=== PATIENT | female | born 1980 | race Caucasian/White ===

== ENCOUNTER 2018-12-18 05:45 | Emergency (ER) | payer OTHER ==
[2018-12-18 06:14] LABS: Urine Blood TRACE (NEG); Urine Glucose 1+ (NEG); Urine Protein 3+ (NEG)
[2018-12-18 06:22] LABS: Absolute Lymphocytes (CBC) 1.7 K/uL (0.7-4.9); Eosinophils % 2.4 % (0-4.4); Hematocrit 41.1 % (36.0-45.0); Lymphocytes % 33.2 % (15.3-44.8); MPV 9.8 fL (7.6-11.3); Monocytes % 4.2 % (3.3-12.3)
[2018-12-18] MEDS ORDERED: ONDANSETRON 4 MG/2 ML VIAL ONE ×2 (06:29→07:30)
[2018-12-18] MEDS ORDERED: FENTANYL CITR 100 MCG/2 ML ONE (06:29)
[2018-12-18] MEDS ORDERED: NA CHLORIDE 0.9% 1,000 ML ONE (06:30)
[2018-12-18] MEDS ORDERED: NA CHLORIDE 0.9% 100 ML IV ONE (06:31)
[2018-12-18] MEDS ORDERED: CEFTRIAXONE 1000 MG/VIAL ONE (06:31)
[2018-12-18 06:35] LABS: Albumin 4.1 g/dL (3.4-5.0); Bilirubin Direct 0.1 mg/dL (0-0.2); Bilirubin Total 0.5 mg/dL (0.2-1.0); Potassium 3.3 mmol/L (3.5-5.1); Protein, Total 7.6 g/dL (6.4-8.2)
[2018-12-18] MEDS ORDERED: levoFLOXacin 500 MG TAB ONE (06:44)
[2018-12-18] MEDS ORDERED: POTASSIUM 25 MEQ EFFERV TAB ONE (07:20)
[2018-12-18] MEDS ORDERED: KETOROLAC 30 MG/ML INJ ONE (07:52)
[2018-12-18] MEDS ORDERED: MORPHINE 4 MG/ML SYR ONE (08:47)
[2018-12-18] MEDS ORDERED: CODEINE 30MG/APAP 300MG TAB ONE (09:13)
--- NOTE | 2018-12-18 09:17 | EDPHYS ---
Physician Documentation [facility] Name: Magnolia Ye Age: 38 yrs Sex: Female : 1980 Arrival Date: 12/18/2018 Time: 05:48 Bed 20 Private MD: ALLY Physician Magno Vance HPI: 12/18 06:07 This 38 yrs old Female presents to ER via Ambulatory with complaints of R renata Side Pain. 06:07 The patient presents with abdominal pain in the right upper quadrant, right lower renata quadrant. Onset: The symptoms/episode began/occurred 2 day(s) ago. The patient complains of pain in the right mid back and right low back. The pain does not radiate. Onset: The symptoms/episode began/occurred 2 day(s) ago. Modifying factors: The symptoms are alleviated by nothing. The symptoms radiate to the right flank. Associated signs and symptoms: Pertinent positives: dysuria, nausea. Associated signs and symptoms: none. The symptoms are described as constant, crampy. 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 - Social history:: Smoking status: Patient/guardian denies using tobacco. - Ebola Screening: : No symptoms or risks identified at this time. - Family history:: not pertinent. ROS: 06:07 Constitutional: Negative for fever, chills, and weight loss, Eyes: Negative for injury, renata pain, redness, and discharge, ENT: Negative for injury, pain, and discharge, Neck: Negative for injury, pain, and swelling, Cardiovascular: Negative for chest pain, palpitations, and edema, Respiratory: Negative for shortness of breath, cough, wheezing, and pleuritic chest pain, : Negative for injury, bleeding, discharge, and swelling, MS/Extremity: Negative for injury and deformity, Skin: Negative for injury, rash, and discoloration, Neuro: Negative for headache, weakness, numbness, tingling, and seizure, Psych: Negative for depression, anxiety, suicide ideation, homicidal ideation, and hallucinations, Allergy/Immunology: Negative for hives, rash, and allergies, Endocrine: Negative for neck swelling, polydipsia, polyuria, polyphagia, and marked weight changes, Hematologic/Lymphatic: Negative for swollen nodes, abnormal bleeding, and unusual bruising. 06:07 Abdomen/GI: Positive for abdominal pain, abdominal cramps, of the posterior aspect of right lateral abdomen, anterior aspect of right lateral abdomen, right upper quadrant and right lower quadrant. Exam: 06:07 Constitutional: This is a well developed, well nourished patient who is awake, alert, renata and in no acute distress. Head/Face: Normocephalic, atraumatic. Eyes: Pupils equal round and reactive to light, extra-ocular motions intact. Lids and lashes normal. Conjunctiva and sclera are non-icteric and not injected. Cornea within normal limits. Periorbital areas with no swelling, redness, or edema. ENT: Nares patent. No nasal discharge, no septal abnormalities noted. Tympanic membranes are normal and external auditory canals are clear. Oropharynx with no redness, swelling, or masses, exudates, or evidence of obstruction, uvula midline. Mucous membranes moist. Neck: Trachea midline, no thyromegaly or masses palpated, and no cervical lymphadenopathy. Supple, full range of motion without nuchal rigidity, or vertebral point tenderness. No Meningismus. Chest/axilla: Normal chest wall appearance and motion. Nontender with no deformity. No lesions are appreciated. Cardiovascular: Regular rate and rhythm with a normal S1 and S2. No gallops, murmurs, or rubs. Normal PMI, no JVD. No pulse deficits. Respiratory: Lungs have equal breath sounds bilaterally, clear to auscultation and percussion. No rales, rhonchi or wheezes noted. No increased work of breathing, no retractions or nasal flaring. Skin: Warm, dry with normal turgor. Normal color with no rashes, no lesions, and no evidence of cellulitis. MS/ Extremity: Pulses equal, no cyanosis. Neurovascular intact. Full, normal range of motion. Neuro: Awake and alert, GCS 15, oriented to person, place, time, and situation. Cranial nerves II-XII grossly intact. Motor strength 5/5 in all extremities. Sensory grossly intact. Cerebellar exam normal. Normal gait. Psych: Awake, alert, with orientation to person, place and time. Behavior, mood, and affect are within normal limits. 06:07 Abdomen/GI: Bowel sounds: normal, Palpation: mild abdominal tenderness, in the right upper quadrant and right lower quadrant, Liver: no appreciated palpable abnormalities, Hernia: not appreciated. Vital Signs: 06:07 BP 112 / 66; Pulse 73; Resp 20 S; Temp 97.7(O); Pulse Ox 100% on R/A; Weight 74.39 kg bb (R); Height 5 ft. 8 in. (172.72 cm) (R); Pain 9/10; 07:00 BP 107 / 65; Pulse 72; Resp 18; Pulse Ox 100% on R/A; hj 08:00 BP 110 / 70; Pulse 70; Resp 18; Pulse Ox 100% on R/A; hj 08:40 BP 110 / 96; Pulse 72; Resp 18; Pulse Ox 100% on R/A; hj 06:07 Body Mass Index 24.94 (74.39 kg, 172.72 cm) MDM: 05:54 Patient medically screened. [facility] 06:07 Data reviewed: vital signs, nurses notes, lab test result(s), radiologic studies, CT renata scan. 07:00 Differential diagnosis: UTI, sepsis, pyelonephritis. cp 09:15 Counseling: I had a detailed discussion with the patient and/or guardian regarding: the cp historical points, exam findings, and any diagnostic results supporting the discharge/admit diagnosis, lab results, radiology results, to return to the emergency department if symptoms worsen or persist or if there are any questions or concerns that arise at home. 09:15 Response to treatment: the patient's symptoms have markedly improved after treatment, cp and as a result, I will discharge patient. 12/18 06:06 Order name: Urine Dipstick--Ancillary (enter results); Complete Time: 06:33 [facility] 12/18 07:28 Interpretation: Normal except: UGLUC 1+; UKET 2+; UBLD TRACE; UPROT 3+; U NIT POSITIVE; cp UESTR 3+. 12/18 06:06 Order name: Urine --Ancillary (enter results); Complete Time: 06:33 [facility] 12/18 06:07 Order name: Basic Metabolic Panel [facility] 12/18 06:07 Order name: CBC with Diff; Complete Time: 06:33 [facility] 12/18 08:05 Interpretation: Reviewed. 12/18 06:07 Order name: Creatinine for Radiology; Complete Time: 06:33 [facility] 12/18 06:07 Order name: Hepatic Function; Complete Time: 06:59 [facility] 12/18 06:07 Order name: Lipase; Complete Time: 06:59 [facility] 12/18 06:07 Order name: CT Stone Protocol [facility] 12/18 06:07 Order name: Urine Culture [facility] 12/18 06:10 Order name: Basic Metabolic Panel; Complete Time: 06:59 EDMS 12/18 07:28 Interpretation: Normal except: K 3.3; CL 109; GLUC 115; GFR 66. 12/18 08:27 Order name: US Transvaginal Study (Probe) 12/18 06:07 Order name: IV Saline Lock; Complete Time: 06:13 [facility] 12/18 06:07 Order name: Labs collected and sent; Complete Time: 06:13 [facility] 12/18 06:07 Order name: Urine Dipstick-Ancillary (obtain specimen); Complete Time: 06:13 [facility] Administered Medications: 06:20 Drug: Zofran 4 mg Route: IVP; Site: right antecubital; ea 06:45 Follow up: Response: No adverse reaction; Nausea is decreased cc3 06:20 Drug: NS 0.9% 1000 ml Route: IV; Rate: 1 bolus; Site: right antecubital; cc3 06:21 Drug: fentaNYL (PF) 50 mcg Route: IVP; Site: right antecubital; ea 06:45 Follow up: Response: No adverse reaction; Pain is decreased cc3 06:21 Drug: Rocephin 2 grams Route: IV; Rate: per protocol; Site: right antecubital; cc3 06:44 Drug: LevOfloxacin 500 mg Route: PO; cc3 06:46 Follow up: Response: No adverse reaction cc3 07:02 Drug: Potassium Effervescent Tablet 25 mEq Route: PO; hj 07:08 Follow up: Response: No adverse reaction hj 07:13 Drug: Zofran 4 mg Route: IVP; Site: right antecubital; hj 07:16 Follow up: Response: No adverse reaction; Nausea is decreased hj 07:40 Drug: TORadol 30 mg Route: IVP; Site: right antecubital; hj 08:20 Follow up: Response: Pain is unchanged, physician notified; Nausea is decreased hj 08:34 Drug: morphine 4 mg Route: IVP; Site: right antecubital; hj 08:57 Follow up: Response: No adverse reaction; Pain is decreased hj 08:47 Drug: Tylenol #3 (300 mg-30 mg) 2 tabs Route: PO; hj 09:30 Follow up: Response: Medication administered at discharge. Disposition: 12/19 06:59 Co-signature as Attending Physician, Magno Vance MD I agree with the assessment and renata plan of care. Disposition: 12/18/18 09:16 Discharged to Home. Impression: Acute tubulo-interstitial nephritis, Dysuria, Hypokalemia, Unspecified ovarian cysts - right. - Condition is Stable. - Discharge Instructions: Potassium Content of Foods, Dysuria, Pyelonephritis, Adult, Pyelonephritis, Adult, [id number], Hypokalemia. - Prescriptions for Levaquin 500 mg Oral Tablet - take 1 tablet by ORAL route once daily for 7 days continue taking morning of 12-19-2018; 9 tablet. Tylenol- Codeine #3 300-30 mg Oral Tablet - take 2 tablets by ORAL route every 6 hours As needed; 20 tablet. Zofran 4 mg Oral Tablet - take 1 tablet by ORAL route every 12 hours As needed; 20 tablet. - Medication Reconciliation Form, Thank You Letter, Antibiotic Education, Prescription Opioid Use form. - Follow up: Private Physician; When: 2 - 3 days; Reason: Recheck today's complaints, Continuance of care, Re-evaluation by your physician. - Problem is new. - Symptoms have improved. Signatures: Dispatcher [employer] EDVT Magno Vance MD MD cha Ballard, Brenda RN RN Rubia Linares RN RN ss Joaquin, Henry, RN RN hj Page, Corey, PA PA cp Antunez, Elena, RN RN Salome Mccarthy cc3 Corrections: (The following items were deleted from the chart) 12/18 09:17 09:16 12/18/2018 09:16 Discharged to Home. Impression: Acute tubulo-interstitial cp nephritis; Dysuria; Hypokalemia. Condition is Stable. Discharge Instructions: Dysuria, Pyelonephritis, Adult, Pyelonephritis, Adult, [id number], Potassium Content of Foods, Hypokalemia. Prescriptions for Levaquin 500 mg Oral Tablet - take 1 tablet by ORAL route once daily for 8-10 days; 9 tablet, Tylenol-Codeine #3 300-30 mg Oral Tablet - take 2 tablets by ORAL route every 6 hours As needed; 20 tablet, Zofran 4 mg Oral Tablet - take 1 tablet by ORAL route every 12 hours As needed; 20 tablet. and Forms are Medication Reconciliation Form, Thank You Letter, Antibiotic Education, Prescription Opioid Use. Follow up: Private Physician; When: 2 - 3 days; Reason: Recheck today's complaints, Continuance of care, Re-evaluation by your physician. Problem is new. Symptoms have improved. cp 09:30 09:17 12/18/2018 09:16 Discharged to Home. Impression: Acute tubulo-interstitial ss nephritis; Dysuria; Hypokalemia; Unspecified ovarian cysts - right. Condition is Stable. Discharge Instructions: Dysuria, Pyelonephritis, Adult, Pyelonephritis, Adult, [id number], Potassium Content of Foods, Hypokalemia. Prescriptions for Levaquin 500 mg Oral Tablet - take 1 tablet by ORAL route once daily for 8-10 days; 9 tablet, Tylenol-Codeine #3 300-30 mg Oral Tablet - take 2 tablets by ORAL route every 6 hours As needed; 20 tablet, Zofran 4 mg Oral Tablet - take 1 tablet by ORAL route every 12 hours As needed; 20 tablet. and Forms are Medication Reconciliation Form, Thank You Letter, Antibiotic Education, Prescription Opioid Use. Follow up: Private Physician; When: 2 - 3 days; Reason: Recheck today's complaints, Continuance of care, Re-evaluation by your physician. Problem is new. Symptoms have improved. cp
--- NOTE | 2018-12-18 09:17 | ER ---
Nurse's Notes [facility] Name: Magnolia Ye Age: 38 yrs Sex: Female : 1980 Arrival Date: 12/18/2018 Time: 05:48 Bed 20 Private MD: Diagnosis: Acute tubulo-interstitial nephritis;Dysuria;Hypokalemia;Unspecified ovarian cysts-right Presentation: 12/18 06:05 Presenting complaint: Patient states: she is having right sided pain since yesterday bb but pain has worsened tremendously. Transition of care: patient was not received from another setting of care. Onset of symptoms was December 17, 2018. Risk Assessment: Do you want to hurt yourself or someone else? Patient reports no desire to harm self or others. Initial Sepsis Screen: Does the patient meet any 2 criteria? No. Patient's initial sepsis screen is negative. Does the patient have a suspected source of infection? No. Patient's initial sepsis screen is negative. Care prior to arrival: None. 06:05 Method Of Arrival: Ambulatory bb 06:05 Acuity: LUÍS 2 bb Triage Assessment: 06:15 General: Appears in no apparent distress. uncomfortable, Behavior is cooperative. Pain: cc3 Complains of pain in right lower quadrant and right upper quadrant and anterior aspect of right lateral abdomen and posterior aspect of right lateral abdomen and right low back and right mid back Quality of pain is described as aching. EENT: No signs and/or symptoms were reported regarding the EENT system. Neuro: Level of Consciousness is awake, alert, obeys commands, Oriented to person, place, time, situation, Appropriate for age. Cardiovascular: Denies chest pain, Patient's skin is warm and dry. Respiratory: Airway is patent Respiratory effort is even, unlabored, Respiratory pattern is regular, symmetrical. GI: Abdomen is round non-distended. : No signs and/or symptoms were reported regarding the genitourinary system. Derm: Skin is intact, is healthy with good turgor, Skin is pink, warm \T\ dry. normal. Musculoskeletal: Circulation, motion, and sensation intact. Range of motion: intact in all extremities. 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 - Social history:: Smoking status: Patient/guardian denies using tobacco. - Ebola Screening: : No symptoms or risks identified at this time. - Family history:: not pertinent. Screenin:13 Abuse screen: Denies threats or abuse. Nutritional screening: No deficits noted. bb Tuberculosis screening: No symptoms or risk factors identified. Fall Risk None identified. Assessment: 06:15 General: see triage assessment. cc3 06:30 Reassessment: Patient appears in no apparent distress at this time. Patient and/or cc3 family updated on plan of care and expected duration. Pain level reassessed. Patient is alert, oriented x 3, equal unlabored respirations, skin warm/dry/pink. Patient taken to CT department by wheelchair by the nuclear fuel enrichment technician. 06:45 Reassessment: Patient appears in no apparent distress at this time. Patient and/or cc3 family updated on plan of care and expected duration. Pain level reassessed. Patient is alert, oriented x 3, equal unlabored respirations, skin warm/dry/pink. Patient came back from CT scan department, awaiting result. Patient denies pain at this time. Patient states feeling better. Patient states symptoms have improved. 07:00 General: Appears in no apparent distress. uncomfortable, Behavior is cooperative, hj appropriate for age, crying. Pain: Complains of pain in right lower quadrant and right upper quadrant and anterior aspect of right lateral abdomen and posterior aspect of right lateral abdomen. Neuro: Level of Consciousness is awake, alert, obeys commands, Oriented to person, place, time, situation, Appropriate for age. Cardiovascular: Capillary refill < 3 seconds Patient's skin is warm and dry. Respiratory: Airway is patent Respiratory effort is even, unlabored, Respiratory pattern is regular, symmetrical. GI: Reports lower abdominal pain, nausea, vomiting. : No signs and/or symptoms were reported regarding the genitourinary system. EENT: No signs and/or symptoms were reported regarding the EENT system. Derm: No signs and/or symptoms reported regarding the dermatologic system. Musculoskeletal: No signs and/or symptoms reported regarding the musculoskeletal system. 07:10 Reassessment: reports increasing N/V; MD notified with orders;. hj 07:20 Reassessment: reports pain of 9/10; MD notified with orders;. hj 07:58 Reassessment: Patient and/or family updated on plan of care and expected duration. Pain hj level reassessed. Patient is alert, oriented x 3, equal unlabored respirations, skin warm/dry/pink. awaiting CT results;. 07:58 Reassessment: complaints of increasing pain; MD notified;. hj Vital Signs: 06:07 BP 112 / 66; Pulse 73; Resp 20 S; Temp 97.7(O); Pulse Ox 100% on R/A; Weight 74.39 kg bb (R); Height 5 ft. 8 in. (172.72 cm) (R); Pain 9/10; 07:00 BP 107 / 65; Pulse 72; Resp 18; Pulse Ox 100% on R/A; hj 08:00 BP 110 / 70; Pulse 70; Resp 18; Pulse Ox 100% on R/A; hj 08:40 BP 110 / 96; Pulse 72; Resp 18; Pulse Ox 100% on R/A; hj 06:07 Body Mass Index 24.94 (74.39 kg, 172.72 cm) ED Course: 05:48 Patient arrived in ED. ds1 05:54 Magno Vance MD is Attending Physician. [facility] 06:00 Urine collected: clean catch specimen. Inserted saline lock: 20 gauge in right bb antecubital area, using aseptic technique. Blood collected. 06:06 Triage completed. bb 06:07 Arm band placed on Patient placed in an exam room, on a stretcher, on pulse oximetry. bb Family accompanied patient. 06:13 Patient has correct armband on for positive identification. Placed in gown. Bed in low bb position. Call light in reach. Side rails up X 1. Adult w/ patient. Pulse ox on. NIBP on. Warm blanket given. 06:13 Initial lab(s) drawn, by me, sent to lab. bb 06:42 CT Stone Protocol In Process Unspecified. EDMS 07:02 Mj Hayden, [place] is Primary Nurse. hj 07:14 Magno Genao PA is PHCP. cp 08:43 US Transvaginal Study (Probe) In Process Unspecified. EDMS 09:29 No provider procedures requiring assistance completed. IV discontinued, intact, ss bleeding controlled, No redness/swelling at site. Pressure dressing applied. Administered Medications: 06:20 Drug: Zofran 4 mg Route: IVP; Site: right antecubital; ea 06:45 Follow up: Response: No adverse reaction; Nausea is decreased cc3 06:20 Drug: NS 0.9% 1000 ml Route: IV; Rate: 1 bolus; Site: right antecubital; cc3 06:21 Drug: fentaNYL (PF) 50 mcg Route: IVP; Site: right antecubital; ea 06:45 Follow up: Response: No adverse reaction; Pain is decreased cc3 06:21 Drug: Rocephin 2 grams Route: IV; Rate: per protocol; Site: right antecubital; cc3 06:44 Drug: LevOfloxacin 500 mg Route: PO; cc3 06:46 Follow up: Response: No adverse reaction cc3 07:02 Drug: Potassium Effervescent Tablet 25 mEq Route: PO; hj 07:08 Follow up: Response: No adverse reaction hj 07:13 Drug: Zofran 4 mg Route: IVP; Site: right antecubital; hj 07:16 Follow up: Response: No adverse reaction; Nausea is decreased hj 07:40 Drug: TORadol 30 mg Route: IVP; Site: right antecubital; hj 08:20 Follow up: Response: Pain is unchanged, physician notified; Nausea is decreased hj 08:34 Drug: morphine 4 mg Route: IVP; Site: right antecubital; hj 08:57 Follow up: Response: No adverse reaction; Pain is decreased hj 08:47 Drug: Tylenol #3 (300 mg-30 mg) 2 tabs Route: PO; hj 09:30 Follow up: Response: Medication administered at discharge. ss Outcome: 09:16 Discharge ordered by . cp 09:29 Discharged to home ambulatory, with family. ss 09:29 Condition: good 09:29 Discharge instructions given to patient, family, Instructed on discharge instructions, follow up and referral plans. medication usage, Demonstrated understanding of instructions, follow-up care, medications, Prescriptions given X 3. 09:30 Patient left the ED. ss Signatures: Dispatcher [employer] EDDC Magno Vance MD MD cha Sanford, Demi ds1 Yaima Conrad RN RN Rubia Linares, RN RN ss Mj Hayden, RN RN Magno Don PA PA cp Antunez, Elena, RN RN Salome Mccarthy 3
--- NOTE | 2018-12-18 09:57 | RAD REPORT ---
EXAM DESCRIPTION: CT - Stone Protocol - 12/18/2018 8:09 am CLINICAL HISTORY: The patient is 38 years years old, Female; ABD PAIN TECHNIQUE: Axial computed tomography images of the abdomen and pelvis without intravenous contrast. Sagittal and coronal reformatted images were created and reviewed. This CT exam was performed usi ng one or more of the following dose reduction techniques: automated exposure control, adjustment o f the mA and/or kV according to patient size, and/or use of iterative reconstruction technique. COMPARISON: No relevant prior studies available. FINDINGS: LUNG BASES: Unremarkable. No mass. No consolidation. No pleural effusions or pneumo thoraces. PLEURAL SPACE: Visualized lung bases are clear with no evidence of pleural fluid or pneumothoraces . ABDOMEN: LIVER: Unremarkable. The liver is normal in size and configuration. There are no significant foc al defects. There is no evidence of biliary ductal dilatation. GALLBLADDER AND BILE DUCTS: Unremarkable. There is no evidence of calculi or pericholecystic infla mmatory changes. There is no biliary ductal dilatation. PANCREAS: Unremarkable. No ductal dilatation, inflammatory changes or mass. SPLEEN: Unremarkable. No splenomegaly or focal defects. ADRENALS: Unremarkable. No mass or calcification. KIDNEYS AND URETERS: There is mild right pelvocaliectasis and moderate ureterectasis without disce rnible distal ureteral obstruction. There is a 3 mm calculus in the lower pole of the left kidney without evidence of right nephrolithias is. There are no solid renal masses and no evidence of left hydronephrosis. STOMACH AND BOWEL: Allowing for nondistention, the stomach, small bowel, colon and rectum are unre markable. PELVIS: APPENDIX: No findings to suggest acute appendicitis. BLADDER: Urinary bladder is completely decompressed, precluding optimal assessment. REPRODUCTIVE: A right adnexal hypodense thin-walled focus measuring 4.1 cm AP by attenuation of 18 Hounsfield units is consistent with a paraovarian or ovarian cyst. The uterus is not identified. The left adnexum is unremarkable. ABDOMEN and PELVIS: INTRAPERITONEAL SPACE: Unremarkable. No free air or free fluid. No significant focal fluid collect ion. BONES/JOINTS: There are no discernible acute fractures or areas of osseous destruction or osteob lastic lesions. SOFT TISSUES: Bilateral mammary implants are present and appear intact. There are no acute finding s in the chest wall. VASCULATURE: Unremarkable. No abdominal aortic aneurysm. LYMPH NODES: Unremarkable. There is no evidence of hilar, mediastinal or axillary adenopathy. IMPRESSION: 1. Right paraovarian or ovarian cyst. 2. There is mild right pelvocaliectasis and moderate ureterectasis without discernible distal urete ral obstruction. Findings may reflect recent passage of a calculus or other distal ureteral obstruc tion. Electronically signed by: Cailin Azevedo MD 12/18/2018 7:05 AM CDT Due to temporary technical issues with the PACS/Fluency reporting system, reports are being signed by the in house radiologist as a courtesy to ensure prompt reporting. The interpreting radiologist is f ully responsible for the content of the report.
--- NOTE | 2018-12-18 11:31 | RAD REPORT ---
EXAM DESCRIPTION: US - Transvaginal Study Probe - 12/18/2018 8:49 am CLINICAL HISTORY: Pelvic pain COMPARISON: December 18, 2018 cat scan FINDINGS: Hysterectomy 4 centimeter right ovarian cyst. Blood flow within the right ovary. Left ovary was not seen. An adnexal mass is not displayed No significant free fluid No significant free fluid is seen. IMPRESSION: 4 centimeter right ovarian cyst. Follow up ultrasound in a couple of months recommended to assess stability/resolution
== END 2018-12-18 09:30 | disposition home or self-care (01) ==
LOC: ER 05:45
DX: N10 Acute pyelonephritis (principal); E87.6 Hypokalemia; N83.201 Unspecified ovarian cyst, right side; Z98.82 Breast implant status
CPT/HCPCS: 36415; 74176; 76377; 76830; 80048; 80076; 81003; 81025; 83690; 85025; 87086; 87088; 96374; 96375; 99284; J2405; J3010; J7030